=== PATIENT | male | born 1955 | race Caucasian/White ===

== ENCOUNTER 2020-10-09 06:10 | Inpatient (IN) ==
[2020-10-09] MEDS ORDERED: Ringers Solution, Lactated 1,000 ML IVC SCH (06:30)
[2020-10-09] MEDS ORDERED: CeFAZolin Syr 2,000MG/20 ML 2,000 MG/20 ML SYRINGE IVPB ONE (06:30)
[2020-10-09] MEDS ORDERED: Acetaminophen IV 1,000 MG/100 ML INFUS..BTL IVPB ONE (06:51)
[2020-10-09] MEDS ORDERED: Famotidine 20 MG/2 ML VIAL IVP ONE (06:51)
[2020-10-09] MEDS ORDERED: Heparin 1,000 UNITS/500 mL 500 ML ONE (07:02)
[2020-10-09] MEDS ORDERED: *HR* Rocuronium Bromide 50 MG/5 ML VIAL ONE ×2 (07:02→09:42)
[2020-10-09] MEDS ORDERED: *HR* Phenylephrine 10 MG/ML VIAL ONE (07:02)
[2020-10-09] MEDS ORDERED: Dexamethasone 4 MG/ML VIAL ONE (07:02)
[2020-10-09] MEDS ORDERED: *HR* Propofol 200 MG/20 ML VIAL IVP ONE (07:02)
[2020-10-09] MEDS ORDERED: *HR* Succinylcholine 200 MG/10 ML VIAL IVP ONE (07:02)
[2020-10-09] MEDS ORDERED: Ondansetron 4 MG/2 ML VIAL ONE (07:02)
[2020-10-09] MEDS ORDERED: Lidocaine -MPF 2% 2 ML VIAL ONE (07:02)
[2020-10-09] MEDS ORDERED: *HR* Midazolam HCl 2 MG/2 ML VIAL ONE (07:03)
[2020-10-09] MEDS ORDERED: *HR* FentaNYL (PF) 100 MCG/2 ML VIAL ONE ×4 (07:03→12:58)
[2020-10-09] MEDS ORDERED: *HR* Nitroprusside 50 MG VIAL IVC ONE (07:18)
[2020-10-09] MEDS ORDERED: Albumin Human 5% 12.5 GM/250 ML IV.SOLN ONE (07:18)
[2020-10-09] MEDS ORDERED: Heparin 1,000 UNITS/500 mL 1,000 ML ONE (07:20)
[2020-10-09] MEDS ORDERED: Promethazine 6.25 MG in Water for inj. (sterile) 20 ML IVPB PRN (07:38)
[2020-10-09] MEDS ORDERED: Ondansetron 4 MG/2 ML VIAL IVP PRN (07:38)
[2020-10-09] MEDS ORDERED: *HR* HYDROmorphone PF 0.5 MG/0.5 ML SYRINGE IVP PRN (07:38)
[2020-10-09] MEDS ORDERED: *HR* OxyCODONE Immed Rel 5 MG TABLET PO PRN (07:38)
[2020-10-09] MEDS ORDERED: ceFAZolin 1,000 MG, Sodium Chloride IRRigation 1,000 ML IR ONE (07:45)
[2020-10-09] MEDS ORDERED: EPHEDrine 50 MG/ML VIAL ONE (08:15)
[2020-10-09] MEDS ORDERED: *HR* HYDROMORPHONE 2 MG/ML VIAL ONE (08:45)
[2020-10-09] MEDS ORDERED: *HR* Remifentanil 2 MG VIAL IVP ONE (09:01)
[2020-10-09 09:07] LABS: ABG Base Excess -2 mEq/L (-2 to 3); ABG Chloride 105 mEq/L (98-107); ABG Glucose 96 mg/dL (60-95); ABG HCO3 23 mEq/L (21-27); ABG Ionized Calcium 1.17 mmol/L (1.15-1.35); ABG Oxygen Saturation 100 % (95-98); ABG PCO2 39 mmHg (35-45); ABG PH 7.37 pH Units (7.32-7.45); ABG PO2 168 mmHg (85-104); ABG TCO2 24 mEq/L (20-26)
[2020-10-09] MEDS ORDERED: *HR* Labetalol 20 MG/4 ML SYRINGE IVP ONE (10:05)
[2020-10-09] MEDS ORDERED: *HR* Heparin 5,000 UNIT/ML VIAL ONE (11:37)
[2020-10-09] MEDS ORDERED: *HR* Remifentanil 1 MG VIAL IVP ONE (11:45)
[2020-10-09] MEDS ORDERED: *HR* PHENYLEPHRINE 1,000 MCG/10 ML SYRINGE IVP ONE (13:15)
[2020-10-09 13:26] LABS: ABG Base Excess -6 mEq/L (-2 to 3); ABG Chloride 110 mEq/L (98-107); ABG Glucose 126 mg/dL (60-95); ABG HCO3 20 mEq/L (21-27); ABG Ionized Calcium 1.08 mmol/L (1.15-1.35); ABG Oxygen Saturation 100 % (95-98); ABG PCO2 42 mmHg (35-45); ABG PO2 197 mmHg (85-104); ABG TCO2 22 mEq/L (20-26)
[2020-10-09] MEDS ORDERED: Naloxone 0.4 MG/ML INJ IVP PRN (15:51)
[2020-10-09] MEDS: CeFAZolin 2 GM/120 ML BAG IVPB SCH ×2 (16:00→23:53)
[2020-10-09] MEDS: 0.9 % Sodium Chloride 1,000 ML IVC SCH ×2 (16:20→23:55)
[2020-10-09] MEDS: *HR* Metoprolol 5 MG/5 ML VIAL IVP SCH ×2 (16:21→23:54)
[2020-10-09] MEDS: Famotidine 20 MG/2 ML VIAL IVP SCH (16:21)
[2020-10-09] MEDS: *HR* Labetalol 20 MG/4 ML SYRINGE IVP PRN (20:04)
[2020-10-10] MEDS: *HR* Labetalol 20 MG/4 ML SYRINGE IVP PRN ×3 (00:50→15:35)
[2020-10-10] MEDS: Ketorolac 30 MG/ML VIAL IVP PRN ×3 (03:06→16:31)
[2020-10-10 04:33] LABS: VBG Ionized Calcium 1.08 mmol/L (1.15-1.35)
[2020-10-10 04:40] LABS: Basophils % 0.1 %; Hemoglobin 12.5 g/dL (12.9-16.9); Immature Granulocytes % 0.4 % (0-4); Lymphocytes # 1.7 K/mcL (0.6-4.6); Mean Corpuscular HGB Conc 32.9 g/dL (31.6-35.5); Mean Corpuscular Hemoglobin 31.2 pg (28.0-33.3); Mean Corpuscular Volume 94.8 fL (83.0-100.0); Mean Platelet Volume 8.8 fL (9.4-12.4); Monocytes % 9.7 %; Neutrophils # 7.7 K/mcL (1.6-8.9); Platelet Count 173 K/mcL (140-400); Red Blood Count 4.01 M/mcL (4.19-5.50); Red Cell Distribution Width 13.4 % (11.5-14.5); Segmented Neutrophils % 73.8 %; White Blood Count 10.5 K/mcL (4.3-11.1)
[2020-10-10 04:48] LABS: BUN/Creatinine Ratio 30 (6-26); Blood Urea Nitrogen 20 mg/dL (8-23); Calcium 7.9 mg/dL (8.6-10.3); Carbon Dioxide 22 mEq/L (23-29); Chloride 110 mEq/L (98-107); Creatine Kinase 856 Units/L (30-223); Glucose 125 mg/dL (70-105); Osmolality,Calculated 292 (280-300); Potassium 3.9 mEq/L (3.5-5.1); Sodium 139 mEq/L (136-145); eGFR For African Americans > 60 (> 60); eGFR For Non-African Americans > 60 (> 60)
[2020-10-10] MEDS: *HR* Metoprolol 5 MG/5 ML VIAL IVP SCH ×4 (06:00→22:53)
[2020-10-10] MEDS: Famotidine 20 MG/2 ML VIAL IVP SCH ×2 (06:00→17:35)
[2020-10-10] MEDS: 0.9 % Sodium Chloride 1,000 ML IVC SCH ×2 (08:24→20:00)
[2020-10-10] MEDS: CeFAZolin 2 GM/120 ML BAG IVPB SCH (08:25)
[2020-10-10] MEDS: Ondansetron 4 MG/2 ML VIAL IVP PRN ×2 (10:42→15:45)
[2020-10-10] MEDS ORDERED: *HR* HYDROmorphone (PF) 1 MG/ML SYRINGE IVP ONE ×2 (17:10→22:45)
[2020-10-10] MEDS ORDERED: Acetaminophen IV 1,000 MG/100 ML INFUS..BTL IVPB ONE (17:12)
[2020-10-11] MEDS: 0.9 % Sodium Chloride 1,000 ML IVC SCH ×2 (04:54→11:43)
[2020-10-11] MEDS: *HR* Metoprolol 5 MG/5 ML VIAL IVP SCH ×4 (05:07→23:48)
[2020-10-11] MEDS: Famotidine 20 MG/2 ML VIAL IVP SCH ×2 (05:07→18:03)
[2020-10-11] MEDS: Ondansetron 4 MG/2 ML VIAL IVP PRN ×2 (08:15→14:52)
[2020-10-11] MEDS: Ketorolac 30 MG/ML VIAL IVP SCH ×3 (11:43→23:47)
[2020-10-11] MEDS: *HR* HYDROmorphone (PF) 1 MG/ML SYRINGE IVP PRN ×2 (16:37→20:13)
[2020-10-12 00:57] LABS: Hematocrit 31.8 % (37.5-50.1); Mean Corpuscular HGB Conc 32.4 g/dL (31.6-35.5); Mean Corpuscular Hemoglobin 30.7 pg (28.0-33.3); Mean Corpuscular Volume 94.6 fL (83.0-100.0); Mean Platelet Volume 8.4 fL (9.4-12.4); Platelet Count 152 K/mcL (140-400); Red Blood Count 3.36 M/mcL (4.19-5.50); Red Cell Distribution Width 13.7 % (11.5-14.5)
[2020-10-12 00:59] LABS: Hemoglobin 10.3 g/dL (12.9-16.9)
[2020-10-12 01:17] LABS: BUN/Creatinine Ratio 29 (6-26); Blood Urea Nitrogen 17 mg/dL (8-23); Calcium 8.3 mg/dL (8.6-10.3); Carbon Dioxide 22 mEq/L (23-29); Chloride 112 mEq/L (98-107); Glucose 101 mg/dL (70-105); Osmolality,Calculated 294 (280-300); Potassium 3.6 mEq/L (3.5-5.1); Sodium 141 mEq/L (136-145); eGFR For African Americans > 60 (> 60); eGFR For Non-African Americans > 60 (> 60)
[2020-10-12] MEDS: *HR* HYDROmorphone (PF) 1 MG/ML SYRINGE IVP PRN ×2 (02:58→12:59)
[2020-10-12] MEDS: Famotidine 20 MG/2 ML VIAL IVP SCH ×2 (05:26→18:03)
[2020-10-12] MEDS: Ketorolac 30 MG/ML VIAL IVP SCH ×3 (05:29→18:03)
[2020-10-12] MEDS: 0.9 % Sodium Chloride 1,000 ML IVC SCH (05:30)
[2020-10-12] MEDS: *HR* Metoprolol 5 MG/5 ML VIAL IVP SCH ×3 (07:52→18:03)
[2020-10-13] MEDS: Ketorolac 30 MG/ML VIAL IVP SCH ×4 (00:01→17:45)
[2020-10-13] MEDS: *HR* Metoprolol 5 MG/5 ML VIAL IVP SCH ×4 (00:02→17:46)
[2020-10-13] MEDS: Famotidine 20 MG/2 ML VIAL IVP SCH ×2 (05:36→17:47)
[2020-10-14] MEDS: Ketorolac 30 MG/ML VIAL IVP SCH ×3 (00:06→11:43)
[2020-10-14] MEDS: *HR* Metoprolol 5 MG/5 ML VIAL IVP SCH ×3 (00:07→11:43)
[2020-10-14 03:20] LABS: Hematocrit 29.9 % (37.5-50.1); Hemoglobin 9.9 g/dL (12.9-16.9); Mean Corpuscular HGB Conc 33.1 g/dL (31.6-35.5); Mean Corpuscular Hemoglobin 31.6 pg (28.0-33.3); Mean Corpuscular Volume 95.5 fL (83.0-100.0); Platelet Count 265 K/mcL (140-400); Red Blood Count 3.13 M/mcL (4.19-5.50); Red Cell Distribution Width 13.6 % (11.5-14.5); White Blood Count 5.9 K/mcL (4.3-11.1)
[2020-10-14 03:42] LABS: BUN/Creatinine Ratio 44 (6-26); Blood Urea Nitrogen 28 mg/dL (8-23); Calcium 8.6 mg/dL (8.6-10.3); Carbon Dioxide 22 mEq/L (23-29); Chloride 111 mEq/L (98-107); Glucose 94 mg/dL (70-105); Osmolality,Calculated 299 (280-300); Potassium 3.4 mEq/L (3.5-5.1); Sodium 142 mEq/L (136-145); eGFR For African Americans > 60 (> 60); eGFR For Non-African Americans > 60 (> 60)
[2020-10-14] MEDS: Famotidine 20 MG/2 ML VIAL IVP SCH (05:46)
[2020-10-14 12:44] VITALS: BP 151/74
== END 2020-10-14 14:00 | disposition home or self-care (01) | DRG 269 ==
LOC: SAMDAY 06:10 → ICNU 15:33 → CDU 10-11 19:35 → 2NNU 10-12 18:57
PROVIDERS: ADMIT Surgery Vascular Surgery; ATTEND Surgery Vascular Surgery